=== PATIENT | female | born 1955 | race Two or more races ===

== ENCOUNTER → 2022-04-01 | Emergency (ER) | payer OTHER ==
[~2022-04-01] VITALS: Ht 167.6 cm; Wt 77.1 kg
[~2022-04-01] MED LIST: BISOPROLOL HCTZ; CHILDREN'S ASPI81 MG PO; LORZONE375 MG; NEXIUM2.5 MG PO; PROMETHAZINE HC25 M1 RC
== END | disposition left against medical advice (07) ==
LOC: ER 16:26
DX: R07.89 Other chest pain (principal); I10 Essential (primary) hypertension; Z91.041 Radiographic dye allergy status